=== PATIENT | male | born 1950 | race Caucasian/White ===

== ENCOUNTER → 2016-06-20 | Outpatient (CLI) | payer OTHER ==
--- NOTE | 2016-06-20 18:46 | CT ---
HISTORY: Severe headaches Study: CT brain without contrast Comparison: 05/12/2016 CT of the sinuses Technique: Multiple axial images of the brain were obtained from the skull base to the vertex without administr ation of IV contrast. 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 The ventricles are bord ronak enlarged and there is minimal prominence of the cortical sulci . There is mild periventricula r low density bilaterally. No intracranial hemorrhage or edema is seen. There is no extra-axial flui d collection or mass. There has been partial resection of the mastoid air cells bilaterally with leena gical clips around the cortical bone in the area which is unchanged. 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 Mild atrophy and minimal chronic microischemic changes in the deep white matter. Within the limitati ons of the study , there is no obvious acute intracranial abnormality seen. Reported By:
== END ==
LOC: RAD 17:56
PROVIDERS: ATTEND Nurse Practitioner
DX: G44.89 Other headache syndrome (principal); Z96.21 Cochlear implant status
CPT/HCPCS: 70450

== ENCOUNTER → 2016-08-17 | Outpatient (CLI) | payer OTHER ==
--- NOTE | 2016-08-17 17:00 | CT ---
HISTORY: Low back pain, degenerative disc disease, muscle spasm Study: CT lumbar spine without contrast Comparison: None Technique: Multiple axial images of the lumbar spine without the administration of IV contrast. Sa gittal and coronal reformats were performed and reviewed. Dose reduction techniques including Autom ated Exposure Control (AEC) and adjustment of mA and kV were utilized. Findings: Alignment of the lumbar spine is maintained. No evidence for acute fracture or subluxation identifi ed. Vertebral body heights are preserved. Advanced multilevel spondylosis and degenerative disc spa ce narrowing is present throughout the lumbar spine. There is vacuum phenomenon at multiple levels. There is multilevel facet arthropathy also noted. There is mild spinal canal stenosis at L1-L2 and L 2-L3; moderate spinal canal stenosis at L3-L4 and moderate to severe spinal canal stenosis at L4-5 due to broad-based disc bulges and posterior ligament calcifications. 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 The gallbladder is removed. The paraspinal soft tissues are otherwise unremarkabl e. There are degenerative changes of the sacroiliac joints. IMPRESSION: 1. Advanced lumbar disc disease and facet arthropathy resulting in multilevel spinal stenosis, worse at L3-L4 and L4-5. Reported By:
== END | disposition home or self-care (01) | DRG 552 ==
LOC: RAD 14:55
PROVIDERS: ATTEND Physical Medicine & Rehabilitation
DX: M54.5 Low back pain (principal); M51.36 Other intervertebral disc degeneration, lumbar region; M47.26 Other spondylosis with radiculopathy, lumbar region; M62.830 Muscle spasm of back
CPT/HCPCS: 72131